=== PATIENT | male | born 1950 | race Caucasian/White ===

== ENCOUNTER 2024-03-24 15:24 | Inpatient (IN) | payer MEDICARE ==
[2024-03-24 17:50] VITALS: BMI 25.4
[2024-03-24] MEDS: Sodium Chloride 0.9% 1,000 ML IV SCH ×2 (18:42→20:47)
[2024-03-24] MEDS: hydrALAZINE 20 MG/ML VIAL SLOW IVP SCH (18:42)
[2024-03-24] MEDS ORDERED: Ondansetron PF 4 MG/2 ML Vial IVP PRN (20:29)
[2024-03-24] MEDS ORDERED: Polyethylene Glycol 3350 17 GM Packet PO PRN (20:36)
[2024-03-24] MEDS: Famotidine/PF 20 mg/2ml Vial SLOW IVP SCH (20:47)
[2024-03-25 06:14] LABS: #Basophils Less than 0.03 10x3/uL (0.0-0.2); #Eosinophils Less than 0.03 10x3/uL (0.0-0.7); %Basophils 0.1 % (0.0-1.0); %Lymphocytes 5.9 % (21.0-51.0); %Monocytes 9.5 % (0.0-10.0); %Neutrophils 84.1 % (42.0-75.0); Hematocrit 30.7 % (42.0-52.0); Hemoglobin 10.6 g/dL (14.0-18.0); Mean Corpuscular HGB CONC 34.5 g/dL (32.0-36.0); Mean Corpuscular Hemoglobin 31.3 pg (27.0-31.0); Mean Corpuscular Volume 90.6 fL (78.0-98.0); Mean Platelet Volume 12.5 fL (7.4-10.4); Platelet Count 121 10x3/uL (130-400); RBC Distribution Width 13.2 % (11.5-14.5); Red Blood Cell (RBC) Count 3.39 mill/uL (4.70-6.10)
[2024-03-25 06:26] LABS: Anion Gap 9 mmol/L (10-20); BUN (Urea Nitrogen) 43 mg/dL (8.4-25.7); Calc. Creatinine Clearance 47 mL/min (70-130); Calcium 8.2 mg/dL (7.8-10.44); Carbon Dioxide 21 mmol/L (23-31); Chloride 114 mmol/L (98-107); Estimated GFR 52; Glucose 131 mg/dL (83-110); Potassium 3.1 mmol/L (3.5-5.1); Sodium 141 mmol/L (136-145)
[2024-03-25] MEDS ORDERED: Ipratropium/Albuterol 3 ML NEB NEB PRN (07:06)
[2024-03-25] MEDS: Metoprolol Tartrate 25 MG TAB PO SCH (08:46)
[2024-03-25] MEDS: Enoxaparin 30 MG (0.3 mL) SYRINGE SC SCH (08:46)
[2024-03-25] MEDS: Senokot S 8.6-50 MG TAB PO SCH (08:46)
[2024-03-25] MEDS: Polyethylene Glycol 3350 17 GM Packet PO SCH (08:46)
[2024-03-25] MEDS: Potassium Chloride 20 MEQ TAB PO SCH (13:34)
[2024-03-25] MEDS: Tamsulosin HCl 0.4 MG CAP PO SCH (20:19)
[2024-03-26 04:46] VITALS: TEMP 98.2
[2024-03-26 05:16] LABS: #Basophils Less than 0.03 10x3/uL (0.0-0.2); %Basophils 0.1 % (0.0-1.0); %Eosinophils 0.4 % (0.0-10.0); %Lymphocytes 6.6 % (21.0-51.0); %Monocytes 9.5 % (0.0-10.0); Hematocrit 29.7 % (42.0-52.0); Hemoglobin 10.1 g/dL (14.0-18.0); Mean Corpuscular Hemoglobin 31.3 pg (27.0-31.0); Platelet Count 104 10x3/uL (130-400); RBC Distribution Width 13.2 % (11.5-14.5); Red Blood Cell (RBC) Count 3.23 mill/uL (4.70-6.10)
[2024-03-26 05:26] LABS: Anion Gap 9 mmol/L (10-20); BUN (Urea Nitrogen) 40 mg/dL (8.4-25.7); Calc. Creatinine Clearance 44 mL/min (70-130); Calcium 8.1 mg/dL (7.8-10.44); Carbon Dioxide 21 mmol/L (23-31); Chloride 116 mmol/L (98-107); Estimated GFR 49; Glucose 122 mg/dL (83-110); Iron 28 ug/dL (65-175); Iron Binding Capacity, Total 131 mcg/dL (261-462); Potassium 3.6 mmol/L (3.5-5.1); Sodium 142 mmol/L (136-145)
[2024-03-26] MEDS: Enoxaparin 40 MG (0.4 mL) SYRINGE SC SCH (08:23)
[2024-03-26 08:30] VITALS: BP 173/74
== END 2024-03-26 10:44 | disposition home or self-care (01) | DRG 641 ==
LOC: T4-A 17:33
PROVIDERS: ADMIT Internal Medicine; ATTEND Internal Medicine
DX: E86.0 Dehydration (principal); N17.9 Acute kidney failure, unspecified; G30.9 Alzheimer's disease, unspecified; K59.00 Constipation, unspecified; F02.80 Dementia in other diseases classified elsewhere, unspecified severity, without behavioral disturbance, psychotic disturbance, mood disturbance, and anxiety; J44.9 Chronic obstructive pulmonary disease, unspecified; Z79.899 Other long term (current) drug therapy; D64.9 Anemia, unspecified
CPT/HCPCS: 36415; 70450; 71045; 80048; 80053; 81001; 82728; 83540; 83550; 83605; 84484; 85025; 93005; 94760; 96360; J0360; J1650; J3490; J7030

== ENCOUNTER 2024-03-31 19:20 | Observation (INO) | payer MEDICARE ==
[2024-03-31] MEDS ORDERED: Moisturizing Cream (Eucerin) 113 GM JAR TOP PRN (21:17)
[2024-03-31] MEDS ORDERED: Bisacodyl 5 MG TAB PO PRN (21:17)
[2024-03-31] MEDS ORDERED: Acetaminophen 650 MG Suppository PR PRN (21:17)
[2024-03-31] MEDS ORDERED: Artificial Tear Ophth Sol 15 ML BOT EA EYE PRN (21:17)
[2024-03-31] MEDS ORDERED: Acetaminophen 325 MG TAB PO PRN (21:17)
[2024-03-31] MEDS ORDERED: Senokot S 8.6-50 MG TAB PO PRN (21:17)
[2024-03-31 21:37] VITALS: BMI 27.8
[2024-03-31] MEDS: Metoprolol Tartrate 25 MG TAB PO SCH (22:10)
[2024-03-31] MEDS: LevoFLOXacin 250 MG TAB PO SCH (22:10)
[2024-03-31] MEDS: Tamsulosin HCl 0.4 MG CAP PO SCH (23:27)
[2024-04-01 05:06] LABS: Anion Gap 8 mmol/L (10-20); BUN (Urea Nitrogen) 51 mg/dL (8.4-25.7); Calc. Creatinine Clearance 45 mL/min (70-130); Calcium 8.2 mg/dL (7.8-10.44); Carbon Dioxide 24 mmol/L (23-31); Chloride 116 mmol/L (98-107); Estimated GFR 45; Glucose 111 mg/dL (83-110); Sodium 144 mmol/L (136-145)
[2024-04-01] MEDS: Donepezil HCl 10 MG TAB PO SCH (08:30)
[2024-04-01] MEDS: Finasteride 5 MG TAB PO SCH (08:30)
[2024-04-01] MEDS: Memantine 10 MG TAB PO SCH (08:30)
[2024-04-01] MEDS: Polyethylene Glycol 3350 17 GM Packet PO SCH (08:31)
[2024-04-01 16:56] VITALS: BP 153/78; TEMP 98.3
[2024-04-01] MEDS ORDERED: Rosuvastatin 5 MG TAB PO SCH (21:00)
[2024-04-01] MEDS ORDERED: Tamsulosin HCl 0.4 MG CAP PO SCH (21:00)
== END 2024-04-01 17:08 | disposition home or self-care (01) ==
LOC: T4-B 20:22
PROVIDERS: ADMIT Family Medicine; ATTEND Internal Medicine
DX: N28.9 Disorder of kidney and ureter, unspecified (principal); R33.9 Retention of urine, unspecified; I10 Essential (primary) hypertension; J44.9 Chronic obstructive pulmonary disease, unspecified
CPT/HCPCS: 51702; 71045; 74176; 80048; 80053; 81001; 83605; 83880; 84484; 85025; 93005; 99285; G0378 ×2; 36415